=== PATIENT | male | born 1970 | race Caucasian/White ===

== ENCOUNTER 2024-08-02 14:53 | Outpatient (AMB) | payer BC, SELFPAY ==
--- NOTE | 2024-08-02 14:59 | A.OFFVIS_ITS ---
Vital Signs 08/02/24 15:04 Height 5 ft 8 in Weight 211 lb BMI 32.1 BP 120/78 Blood Pressure Location Rt brachial Position Sitting Pulse 70 Pulse Source Pulse Oximeter Pulse Oximetry (%) 96 Oxygen Delivery Method Room Air Intake Visit Reasons: Colonoscopy Screening R/S X2 Intake Note: NEW PATIENT for repeat colo screening. Over [address] Luna? Chief Complaint; Pt reports hx of hemorrhoids that typically don't bother him. Pt denies any additional concerns or sx. 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 male here today for pre colonoscopy screening.? Patient was sent to us by his PCP.? Last colonoscopy more than 10 years ago and it was normal. Patient reports family history of CRC. Paternal grandmother was diagnosed with CRC in her 60s. Patient denies any gastrointestinal symptoms in the past or at present.? However patient does report occasionally l having to push to have a bowel movement and sometimes sees blood with bowel movement and rectal pain. ? Denies history of difficulty with sedation or anesthesia in the past.? Negative for history of sleep apnea.? Denies any history of cardiac, renal, pulmonary, or hepatic disease.?? No history of infectious? diseases like hepatitis A, B, C, HIV or tuberculosis.? Patient is not on any anticoagulation [facility] Medical History Erectile disorder Surgical History Hx of colonoscopy History of vasectomy History of tonsillectomy Family History Paternal Grandfather Colon cancer Father Pancreatic cancer Social History Alcohol intake: never Patient Tobacco Use Status: Never used Tobacco Use of substances other than those prescribed or required for medical reasons: No Review of Systems Const Denies weight gain and Denies weight loss ENT Reports no additional complaints, Denies dysphagia and Denies odynophagia Card Reports no additional complaints Resp Reports no additional complaints GI Denies abdominal pain, Denies belching, Denies melena, Denies bloating, Denies change in bowel habits, Denies dysphagia, Denies excessive flatus, Denies dyspepsia, Denies heartburn, Denies diarrhea, Denies loose stools, Denies nausea, Denies odynophagia and Denies vomiting Reports no additional complaints Musc Reports no additional complaints Neuro Reports no additional complaints Psych Reports no additional complaints Endo Reports no additional complaints Physical Exam Vital Signs: Last Vital Signs Pulse 70 08/02/24 15:04 BP 120/78 08/02/24 15:04 Pulse Ox 96 08/02/24 15:04 Oxygen Delivery Method Room Air 08/02/24 15:04 BMI result Body Mass Index 32.1 Const General: healthy appearing, no acute distress and well developed Nutritional Appearance: well nourished Orientation/consciousness: patient oriented x3 Resp Effort & Inspection: normal respiratory effort, able to speak in complete sentences, no tracheal deviation and symmetric chest movement Auscultation: clear to auscultation bilaterally Cardio Rate: regular rate GI Inspection: Yes normal to inspection and No distended Palpation (GI): Soft to palpation, not firm, nontender and No hepatosplenomegaly present Auscultation: normal bowel sounds General: Yes no CVA tenderness Back/Spine/Pelvis Back: no CVA tenderness Skin General skin exam: elasticity normal, turgor normal and dry skin Neuro General: patient oriented x3 Psych Appearance: grossly normal Mental Status: mental status grossly normal Assessment & Plan Assessment & Plan (1) Screen for colon cancer: Code(s): Z12.11 - Encounter for screening for malignant neoplasm of colon Plan Patient denies any cardiac or respiratory symptoms.? Denies any issues with anesthesia in the past.? Denies any history of sleep apnea.? No history infectious diseases in the past or present.? Not on any anticoagulation therapy.? Family history of CRC. Patient denies melena, hematochezia, unintentional weight loss or ribbon like stools.? Discussed at length the pre- procedure,? prep, diet & medications as well as what to expect prior, during and after the procedure.?? Stressed the importance of good bowel prep.? Recommended the use of Vaseline or Calmoseptine OTC & baby wipes with bowel movements to promote comfort.? ?Patient verbalizes understanding and agrees to plan of care.? He was given the opportunity to ask questions and all questions answered.? We will see him after the procedure.? Medications: New polyethylene glycol 3350 (Miralax) As directed by gastroenterology department at [facility] 238 grams PO ONCE 238 grams 0RF Z12.11 - Encounter for screening for malignant neoplasm of colon bisacodyl (Dulcolax (bisacodyl)) Start taking 2 tablet every night 7 days before the procedure and 1 day before procedure take 4 tablets at noon time followed by MiraLax prep 10 mg (2 x 5 mg) PO BEDTIME 16 tabs 0RF Z12.11 - Encounter for screening for malignant neoplasm of colon Coding Level of Care Code New Pt Level 3 (45040) Diagnoses Screen for colon cancer Z12.11 Time Spent (min) 40 Comment 30 minutes spent with patient and additional 10 minutes spent reviewing his records
[2024-08-02 15:04] VITALS: BP 120/78; PULSE 70; O2SAT 96; BMI 32.1
== END 2024-08-02 15:31 | disposition home or self-care (01) ==
LOC: HO.HGI 14:54
PROVIDERS: PCP Internal Medicine; Visit Provider Nurse Practitioner Family
DX: Z01.818 Encounter for other preprocedural examination (principal); Z12.11 Encounter for screening for malignant neoplasm of colon
CPT/HCPCS: S0285

== ENCOUNTER 2025-01-13 07:51 | Day surgery (SDC) | payer BC, SELFPAY ==
[2025-01-11 13:27] VITALS: BMI 32.1
--- NOTE | 2025-01-12 08:45 | HO.ANESPROP2 ---
Documented by User: Cecilia Lema NP 01/12/25 08:45 HPI - Anesthesia Eval Consult details Narrative: 54yo M for Colon[facility] Past Medical History Medical History Erectile disorder Family History Family History Paternal Grandfather Colon cancer Father Pancreatic cancer Surgical History Surgical History Hx of colonoscopy History of vasectomy History of tonsillectomy Social History Social History Alcohol intake: never Patient Tobacco Use Status: Never used Tobacco Use of substances other than those prescribed or required for medical reasons: No Are you DNR?: No Advance Directives: No Advance Directives Information Provided: Yes Meds Allergies Allergy/AdvReac Type Severity Reaction Status Date / Time No Known Allergies Allergy Verified 01/13/25 08:28 Home Medications ?Medication ?Instructions ?Recorded ?Confirmed ?Last Taken ?Type glucosamine sulfate 500 mg tablet 500 mg PO DAILY 07/28/24 01/13/25 Unknown History (Glucosamine) multivitamin 1 tab PO DAILY 07/28/24 01/13/25 Unknown History sildenafil 100 mg tablet 100 mg PO DAILY PRN Erectile 07/28/24 01/13/25 Unknown History Dysfunction fexofenadine 60 mg tablet (Evangelina 60 mg PO BID 08/02/24 01/13/25 Unknown History Allergy) Exam Height,Weight and Vital Signs: Height 5 ft 8 in Weight 95.708 kg Assessment and Plan Assessment Anesthesia Assessment: Chart Reviewed Documented by User: Sia Pennington MD 01/13/25 09:24 [facility] Past Medical History Medical History Erectile disorder Family History Family History Paternal Grandfather Colon cancer Father Pancreatic cancer Family history of problems with anesthesia: No Surgical History Surgical History Hx of colonoscopy History of vasectomy History of tonsillectomy History of Problems with Anesthesia: No Social History Social History Alcohol intake: never Patient Tobacco Use Status: Never used Tobacco Use of substances other than those prescribed or required for medical reasons: No Are you DNR?: No Advance Directives: No Advance Directives Information Provided: Yes Meds Allergies Allergy/AdvReac Type Severity Reaction Status Date / Time No Known Allergies Allergy Verified 01/13/25 08:28 Home Medications ?Medication ?Instructions ?Recorded ?Confirmed ?Last Taken ?Type glucosamine sulfate 500 mg tablet 500 mg PO DAILY 07/28/24 01/13/25 Unknown History (Glucosamine) multivitamin 1 tab PO DAILY 07/28/24 01/13/25 Unknown History sildenafil 100 mg tablet 100 mg PO DAILY PRN Erectile 07/28/24 01/13/25 Unknown History Dysfunction fexofenadine 60 mg tablet (Evangelina 60 mg PO BID 08/02/24 01/13/25 Unknown History Allergy) Exam Airway Mallampati Class: II TM Dist: >3cm Neck ROM: Full Heart: rrr Lungs: cta Assessment and Plan Assessment Anesthesia Assessment: Anesthesia Plan Discussed Final Anesthetic Review Family History of Problems with Anesthesia: No History of Problems with Anesthesia: No NPO: Yes ASA Class: III Final Preanesthetic Review: No Changes in Pt Med Stat, Meds/Allgs Chart Reviewed and Consent Obtained/Reviewed Patient Risk: Low Procedure Risk: Low Anesthetic Plan Anesthetic Plan: MAC: Disposition: Standard PACU
--- NOTE | 2025-01-13 07:23 | MHC.SHP ---
Pre-Procedural Eval Section A - 24 Hr Update-Section A only Date of Service: 01/13/25 The patient is an INPATIENT: No The patient has been examined within 24 hours of the surgical procedure. The History & Physical has been completed within 30 days and I have reviewed it.: No Section B - Complete if H&P > 30 days Chief Complaint: screening, family history of colon cancer Relevant Family History (Specify if Yes): Yes Relevant Social History: None Present Medications: see Short Stay Collaborative assessment Medical History: Significant History (Erectile disorder) History of Previous Operations: Relevant previous surgery/procedure and date(s) (Hx of colonoscopy History of vasectomy History of tonsillectomy) Allergies: Allergies Allergy/AdvReac Type Severity Reaction Status Date / Time No Known Allergies Allergy Verified 08/02/24 14:59 Review of Systems Sugical H&P ROS: Negative: Constitution, Cardiovascular, Respiratory and Gastrointestinal Exam Surgical H&P Exam: Normal: Heart, Normal: Lungs, Normal: Extremities and Normal: Abdomen Plan Diagnosis/Plan: Unchanged I have reviewed the history and physical and performed a pertinent physical examination on my patient. No changes have occurred unless specified. Time Spent With Patient Time: Total time managing care of this patient today ____ minutes.
[2025-01-13 08:28] VITALS: BP 127/68; PULSE 49; RESP 15; TEMP 36.5; O2SAT 98; BMI 31.0
[2025-01-13] MEDS: Lactated Ringers 1,000 ML 100 ML IVCONT (08:39)
[2025-01-13 10:11] VITALS: BP 105/67; PULSE 54; RESP 16; TEMP 36.1; O2SAT 98
--- NOTE | 2025-01-13 10:11 | P.OPN-COLO_ITS ---
Colonoscopy Operative Note Operative Note Date of Service: 01/13/25 Narrative: COLONOSCOPY TILL CECUM Pre-op diagnosis: Colon cancer screening (2nd colon). Post-op diagnosis:? Diverticulosis, hemorrhoids Endoscopist:? Yadira Aguilar MD Anesthesia:?MAC Consent: Indications for the procedure and potential complications of bleeding, perforation, reaction to medications and missed diagnosis were discussed with the patient and informed consent was obtained. Instrument: Olympus CF H 190 L variable stiffness adult colonoscope Monitoring: Vital signs and clinical assessment, intermittent blood pressure monitoring, continuous EKG monitoring, Pulse oximetry and Carbon Dioxide monitoring were done throughout the procedure. Please see anesthesia flowsheet. Colon withdrawl time was 19 minutes. Procedure: The patient was placed in the left lateral decubitis position and pre-procedure medications were administered. After a digital rectal examination of the ano-rectum, the video colonoscope was inserted into the rectum and advanced through the colon to the cecum. The colonoscope was slowly withdrawn in a retrograde panoramic fashion and the colon mucosa was carefully examined including a retroflexed view of the rectum. Findings and interventions are described below. Procedure Difficulty: LLQ pressure was applied to intubate the cecum Findings: Terminal Ileum: Not evaluated Cecum: Normal Ascending Colon: Normal Transverse Colon: Normal Descending Colon: Normal Sigmoid Colon: Moderate diverticulosis Rectum: Normal Ano-rectum: Moderate internal hemorrhoids Colon preparation: Good after some irrigation. [place] Bowel Preparation Scale Right colon; 2 Transverse colon: 2 Left colon; 2 (0 = Unprepared colon segment with mucosa not seen due to solid stool that cannot be cleared. 1 = Portion of mucosa of the colon segment seen, but other areas of the colon segment not well seen due to staining, residual stool and/or opaque liquid. 2 = Minor amount of residual staining, small fragments of stool and/or opaque liquid, but mucosa of colon segment seen well. 3 = Entire mucosa of colon segment seen well with no residual staining, small fragments of stool or opaque liquid) Impression and Post Procedure Diagnosis: Colonoscopy Findings: No polyps were detected Moderate diverticulosis seen in the sigmoid colon Moderate hemorrhoids on retroflexed exam. Plan: Repeat Colonoscopy in 10 years (earlier patient develops a change in bowel habits or rectal bleeding). Above findings were reviewed with the patient and relevant handouts were given and the discharge area. Patient was placed on the colonoscopy recall list for repeat colonoscopy in 10 years.
[2025-01-13 10:26] VITALS: BP 109/67; PULSE 51; RESP 18; TEMP 36.7; O2SAT 99
== END 2025-01-13 11:35 | disposition home or self-care (01) ==
PROVIDERS: Visit Provider Internal Medicine Gastroenterology
PROC: 0DJD8ZZ Inspection of Lower Intestinal Tract, Via Natural or Artificial Opening Endoscopic (ICD-10-PCS; CPT 45378; principal; 2025-01-13 09:20)
DX: Z12.11 Encounter for screening for malignant neoplasm of colon (principal); K57.30 Diverticulosis of large intestine without perforation or abscess without bleeding; K64.8 Other hemorrhoids; Z80.0 Family history of malignant neoplasm of digestive organs
CPT/HCPCS: 45378; J2003; J2704

== ENCOUNTER → 2025-01-13 07:51 | Outpatient (BNV) | payer BC, SELFPAY | PROVIDERS: Visit Provider Internal Medicine Gastroenterology | DX: Z12.11 Encounter for screening for malignant neoplasm of colon (principal); Z86.0100 Personal history of colon polyps, unspecified; K57.30 Diverticulosis of large intestine without perforation or abscess without bleeding | CPT/HCPCS: 45378 ==